=== PATIENT | female | born 1945 | race Caucasian/White ===

== ENCOUNTER 2020-06-10 08:52 | Outpatient (CLI) | payer MEDICARE, OTHER, SELFPAY ==
--- NOTE | 2020-06-10 09:10 | CT_ITS ---
WS: [id number] CT CHEST, ABDOMEN, AND PELVIS TECHNIQUE: Contrast-enhanced CT of the chest, abdomen, and pelvis with coronal and sagittal reformatt ed images. CLINICAL INFORMATION: ADENOCARCINOMA RIGHT LUNG COMPARISON: None. DLP: 2298.[address] scans at [facility] use at least one of these dose optimization techniques: automat ed exposure control; mA and/or kV adjustment per patient size (includes targeted exams where dose is matched to clinical indication); or iterative reconstruction. CT CHEST: Subsegmental atelectasis in the right middle lobe and right lower lobe with a few hazy opacities in t he right lower lobe. Small right pleural effusion with mild pleural thickening. No evidence of residu al or recurrent intraparenchymal mass. Left lung is well aerated. No focal consolidation. No focal pn eumonia. No mediastinal or hilar lymphadenopathy. Calcified peribronchial and left hilar lymph nodes. No axill catalina lymphadenopathy. Normal caliber thoracic aorta. Proximal main pulmonary arteries are normal. Righ t thyroid nodule measuring 9 mm. Small esophageal hiatal hernia. Prominent periesophageal lymph node measuring 7.[address] ABDOMEN AND PELVIS: Diffuse fatty infiltration of the liver. Portal vein and splenic vein are normal. Normal gallbladder. Splenic granulomas. Small esophageal hiatal hernia. Fatty atrophy of the pancreas. Adrenal glands ar e normal. Normal renal parenchymal enhancement. Right renal cyst measuring 8 mm. No periaortic or upp er abdominal lymphadenopathy. No pelvic or inguinal lymphadenopathy. Prominent left inguinal lymph no de with preserved fatty hilum measuring 8 mm. No evidence of small or large bowel obstruction. No amaya dence of metastatic disease in the abdomen or pelvis. No free fluid in the abdomen or pelvis. Chronic compression of the T12 vertebral body with loss of ap proximately 60% vertebral body height. Mild retropulsion posterior superior cortex with mild central canal stenosis. CT/CT chest abd pel w con* IMPRESSION: 1. Subsegmental atelectasis in the right middle lobe and right lower lobe with a few patchy opacities in right lung base likely inflammatory. Small right ple ural effusion with pleural thickening. 2. No evidence of recurrent or residual intraparenchymal mass in the right leonidas g. Left lung is well aerated. 3. No mediastinal or hilar lymphadenopathy. 4. Prominent periesophageal lymph node at the GE junction measuring 7.6 mm is indeterminate. Metastatic disease not entirely excluded. Recommend 3 month inte rval follow-up. 5. Small esophageal hiatal hernia. 6. Mild diffuse fatty infiltration of the liver. 7. No adenopathy or evidence of metastatic disease in the abdomen or pelvis. 8. Chronic compression of the T12 vertebral body described above.
[2020-06-10] MEDS: iohexol 300 mg/mL 50 mL Btl PO (09:21)
[2020-06-10 10:34] LABS: Blood Urea Nitrogen 16 mg/dL (8-23)
[2020-06-10] MEDS: iohexol 300 mg/mL 100 mL Btl IV (10:49)
== END 2020-06-10 08:53 | disposition home or self-care (01) ==
PROVIDERS: PCP Student in an Organized Health Care Education/Training Program; Visit Provider Internal Medicine Hematology & Oncology
DX: C34.91 Malignant neoplasm of unspecified part of right bronchus or lung (principal); J98.11 Atelectasis; K44.9 Diaphragmatic hernia without obstruction or gangrene; K76.0 Fatty (change of) liver, not elsewhere classified; S22.080A Wedge compression fracture of T11-T12 vertebra, initial encounter for closed fracture; X58.XXXA Exposure to other specified factors, initial encounter
CPT/HCPCS: 71260; 74177; 82565; 84520; Q9967

== ENCOUNTER 2020-08-23 09:11 | Outpatient (CLI) | payer MEDICARE, OTHER, SELFPAY ==
--- NOTE | 2020-08-23 09:30 | CT_ITS ---
WS: [id number] CT CHEST, ABDOMEN, AND PELVIS TECHNIQUE: Contrast-enhanced CT of the chest, abdomen, and pelvis with coronal and sagittal reformatt ed images. CLINICAL INFORMATION: ADENOCARCINOMA OF RT LUNG COMPARISON: CT June 10, 2020, 02/09/2020 and 11/10/2019 DLP: 2357.[address] scans at [facility] use at least one of these dose optimization techniques: automat ed exposure control; mA and/or kV adjustment per patient size (includes targeted exams where dose is matched to clinical indication); or iterative reconstruction. CT CHEST: Subsegmental atelectasis in the right middle lobe and right lower lobe with a few hazy opacities unch anged from previous. Small right pleural effusion with mild pleural thickening. No evidence of residu al or recurrent intraparenchymal mass. Left lung is well aerated. No mediastinal or hilar lymphadenopathy. Calcified peribronchial and left hilar lymph nodes. Prominent left axillary lymph nodes slightly progressed compared to previous, larg est measuring 7-8 mm not pathologically enlarged. Normal caliber thoracic aorta. Proximal main pulmon catalina arteries are normal. Right thyroid nodule measuring 9 mm. Unchanged Small esophageal hiatal herni a. Prominent periesophageal lymph node measuring [address] ABDOMEN AND PELVIS: Diffuse fatty infiltration of the liver. Portal vein and splenic vein are normal. Normal gallbladder. Splenic granulomas. Small esophageal hiatal hernia. Fatty atrophy of the pancreas. Adrenal glands ar e normal. Normal renal parenchymal enhancement. Right renal cyst measuring 8 mm. No periaortic or upp er abdominal lymphadenopathy. No pelvic or inguinal lymphadenopathy. No evidence of small or large bowel obstruction. No evidence of metastatic disease in the abdomen or pelvis. No free fluid in the abdomen or pelvis. Chronic compression of the T12 vertebral body with lo ss of approximately 60% vertebral body height. Mild retropulsion posterior superior cortex with mild central canal stenosis. CT/CT chest abd pel w con* IMPRESSION: 1. Stable small right pleural effusion with pleural thickening. 2. No evidence of recurrent or residual intraparenchymal mass in the right leonidas g. 3. No mediastinal or hilar lymphadenopathy. 4. Prominent periesophageal lymph node at the GE junction measuring 7.0 mm is unchanged 5. Small esophageal hiatal hernia. 6. Mild diffuse fatty infiltration of the liver. 7. No adenopathy or evidence of metastatic disease in the abdomen or pelvis. 8. Chronic compression of the T12 vertebral body unchanged
[2020-08-23] MEDS: iohexol 300 mg/mL 50 mL Btl PO (11:15)
[2020-08-23 11:27] LABS: Blood Urea Nitrogen 15 mg/dL (8-23)
[2020-08-23] MEDS: iohexol 300 mg/mL 100 mL Btl IV (11:34)
== END 2020-08-23 09:12 | disposition home or self-care (01) ==
LOC: RADWPI 09:14
PROVIDERS: PCP Student in an Organized Health Care Education/Training Program; Visit Provider Internal Medicine Hematology & Oncology
DX: C34.91 Malignant neoplasm of unspecified part of right bronchus or lung (principal); S22.089A Unspecified fracture of T11-T12 vertebra, initial encounter for closed fracture; X58.XXXA Exposure to other specified factors, initial encounter; K76.0 Fatty (change of) liver, not elsewhere classified; K44.9 Diaphragmatic hernia without obstruction or gangrene; J90 Pleural effusion, not elsewhere classified
CPT/HCPCS: 71260; 74177; 82565; 84520; Q9967

== ENCOUNTER 2020-11-11 08:23 | Outpatient (CLI) | payer MEDICARE, OTHER, SELFPAY ==
[2020-11-11 08:56] LABS: Basophils % 0.6 %; Eosinophils # 0.2 10^3/uL (0.0-0.8); Eosinophils % 4.8 %; Hemoglobin 12.2 g/dL (11.5-15.3); Lymphocytes # 0.9 10^3/uL (0.8-4.8); Lymphocytes % 23.8 %; Mean Corpuscular HGB Conc 31.3 g/dL (30.0-36.0); Mean Corpuscular Hemoglobin 30.3 pg (28.0-34.0); Mean Corpuscular Volume 96.8 fL (81-99); Monocytes # 0.6 10^3/uL (0.2-0.9); Monocytes % 15.4 %; Neutrophils # 1.98 10^3/uL (1.8-7.7); Neutrophils % 55.4 %; Nucleated Red Blood Cells % 0 %; Platelet Count 156 10^3/cmm (130-400); Red Blood Count 4.03 10^6/uL (4.1-5.3); Red Cell Distribution Width 13.6 % (12.1-15.1); White Blood Count 3.6 10^3/uL (4.0-10.0)
[2020-11-11 09:03] LABS: Alanine Aminotransferase 25 U/L (0-33); Albumin Level 3.2 g/dL (3.5-5.2); Alkaline Phosphatase 69 IU/L (35-105); Anion Gap 8.5 (5-19); Aspartate Amino Transferase 22 U/L (0-32); Blood Urea Nitrogen 22 mg/dL (8-23); Calcium 8.4 mg/dL (8.5-10.5); Carbon Dioxide 29 mmol/L (22-29); Chloride 109 mmol/L (98-107); Globulin 1.7 g/dL (1.3-4.6); Glucose 84 mg/dL (65-115); Osmolality Calculated 297 mOsm/kg (285-295); Potassium 4.5 mmol/L (3.5-5.1); Sodium 142 mmol/L (136-145); Total Bilirubin 0.2 mg/dL (0.15-1.2); Total Protein 4.9 g/dL (6.6-8.7)
== END 2020-11-11 08:24 | disposition home or self-care (01) ==
LOC: LAB 08:26
PROVIDERS: PCP Student in an Organized Health Care Education/Training Program; Visit Provider Internal Medicine Hematology & Oncology
DX: C34.91 Malignant neoplasm of unspecified part of right bronchus or lung (principal)
CPT/HCPCS: 36415; 80053; 85025

== ENCOUNTER 2020-12-08 07:58 | Outpatient (CLI) | payer MEDICARE, OTHER, SELFPAY ==
--- NOTE | 2020-12-08 08:12 | NM_ITS ---
WS: [id number] NUCLEAR MEDICINE BONE SCAN Radiopharmaceutical: 26.5 Tc-99m MDP mCi IV Injection site: Right antecubital Postinjection imaging delay: 1 hr CLINICAL INFORMATION: ADENOCARCINOMA R LUNG COMPARISON: CT chest abdomen pelvis December 08, 2020 FINDINGS: Bone lesions: There are no osseous lesions suspicious for metastatic disease. Soft tissue contours: Normal. Kidneys: Normal. Other findings: Low-grade uptake in the T12 vertebral body consistent with previously described compr ession fracture. Compression fracture unchanged since October 2019 NM/NM bone scan whole body* [id number] IMPRESSION: 1. No evidence of osseous metastatic disease. 2. Low-grade uptake chronic compression fracture T12 vertebral body. Compressi on fracture unchanged since October 2019
--- NOTE | 2020-12-08 08:12 | CT_ITS ---
WS: [id number] CT CHEST, ABDOMEN, AND PELVIS TECHNIQUE: Contrast-enhanced CT of the chest, abdomen, and pelvis with coronal and sagittal reformatt ed images. CLINICAL INFORMATION: ADENOCARCINOMA R LUNG COMPARISON: Multiple prior CTs August 2020, May 2020, January 2020, October 2019. DLP: 1209.[address] scans at [facility] use at least one of these dose optimization techniques: automat ed exposure control; mA and/or kV adjustment per patient size (includes targeted exams where dose is matched to clinical indication); or iterative reconstruction. CT CHEST: Both lungs are well aerated. No acute pulmonary infiltrates. Hazy atelectasis in right middle lobe an d right lower lobe. Tiny right pleural effusion pleural thickening unchanged from previous. Left lung is well aerated. Small bilateral thyroid nodules. Normal caliber thoracic aorta. No mediastinal or h ilar lymphadenopathy. Calcified hilar lymph nodes. No axillary lymphadenopathy. Previously described paraesophageal lymph node measuring [address] ABDOMEN AND PELVIS: Diffuse fatty infiltration of the liver. Portal vein and splenic vein are normal. Normal gallbladder . Splenic granulomas. Small esophageal hiatal hernia. Fatty atrophy of the pancreas. Adrenal glands are normal. Normal renal parenchymal enhancement. Right renal cyst measuring 8 mm. No periaortic or upper abdominal lymphadenopathy. No pelvic or inguinal lymphadenopathy. No evidence of small or large bowel obstruction. No evidence of metastatic disease in the abdomen or pelvis. No free fluid in the abdomen or pelvis. Chronic compression of the T12 vertebral body with loss of approximately 60% vertebral body height is unchanged. Mild retropulsion posterior superi or cortex with mild central canal stenosis. CT/CT chest abd pel w con* IMPRESSION: 1. No evidence of metastatic disease in the chest abdomen or pelvis. 2. No adenopathy in the chest abdomen or pelvis. 3. Stable compression fracture T12 vertebral body with loss of approximately 6 0% vertebral body height is unchanged.
[2020-12-08] MEDS: iohexol 300 mg/mL 50 mL Btl PO (09:37)
[2020-12-08] MEDS: iohexol 300 mg/mL 100 mL Btl IV (09:38)
== END 2020-12-08 07:59 | disposition home or self-care (01) ==
LOC: CT 08:01
PROVIDERS: PCP Student in an Organized Health Care Education/Training Program; Visit Provider Internal Medicine Hematology & Oncology
DX: C34.91 Malignant neoplasm of unspecified part of right bronchus or lung (principal); S22.088A Other fracture of T11-T12 vertebra, initial encounter for closed fracture; X58.XXXA Exposure to other specified factors, initial encounter
CPT/HCPCS: 71260; 74177; 78306; A9561

== ENCOUNTER 2021-04-11 07:13 | Outpatient (CLI) | payer MEDICARE, OTHER, SELFPAY ==
--- NOTE | 2021-04-11 07:17 | CT_ITS ---
WS: [id number] CT CHEST, ABDOMEN, AND PELVIS TECHNIQUE: Contrast-enhanced CT of the chest, abdomen, and pelvis with coronal and sagittal reformatt ed images. CLINICAL INFORMATION: ADENOCARCINAOMA RT LUNG COMPARISON: CT December 08, 2020 August 23, 2020 DLP: 1108.[address] scans at [facility] use at least one of these dose optimization techniques: automated e xposure control; mA and/or kV adjustment per patient size (includes targeted exams where dose is matc hed to clinical indication); or iterative reconstruction. CT CHEST: Lungs are well aerated. Hazy atelectasis in right middle lobe and right lower lobe. Tiny right pleur al effusion pleural thickening unchanged from previous. Left lung is well aerated. Small bilateral thyroid nodules. Normal caliber thoracic aorta. No mediastinal or hilar lymphadenopat hy. Calcified hilar lymph nodes. No axillary lymphadenopathy. Previously described paraesophageal lym ph node measuring [address] ABDOMEN AND PELVIS: Diffuse fatty infiltration the liver. Normal portal vein and splenic vein. Splenic granulomas. Small esophageal hiatal hernia. Fatty atrophy of the pancreas. Adrenal glands are normal. Stable right mary l cyst. Normal renal parenchymal enhancement. No hydronephrosis. Normal caliber abdominal aorta. Normal sigmoid colon. No evidence of high-grade small or large bowel obstruction. No periaortic retro peritoneal lymphadenopathy. No pelvic lymphadenopathy. No inguinal lymphadenopathy. CT/CT chest abd pel w con* IMPRESSION: 1. No evidence of metastatic disease in the chest abdomen or pelvis. 2. No adenopathy in the chest abdomen or pelvis. 3. Stable compression fracture T12 vertebral body with loss of approximately 60 % vertebral body height is unchanged. 4. Tiny right pleural effusion pleural thickening unchanged from previous.
--- NOTE | 2021-04-11 07:18 | NM_ITS ---
WS: [id number] NUCLEAR MEDICINE BONE SCAN Radiopharmaceutical: 27.4 Tc-99m MDP mCi IV Injection site: antecubital Postinjection imaging delay: 1 hr CLINICAL INFORMATION: ADENOCARCINOAMS RT LUNG COMPARISON: December 08, 2020 FINDINGS: Bone lesions: There are no osseous lesions suspicious for metastatic disease. Soft tissue contours: Normal. Kidneys: Normal. Other findings: Low-grade uptake in the T12 vertebral body consistent with previously described compr ession fracture is similar in appearance to previous. Compression fracture unchanged since December 08 21 NM/NM bone scan whole body* [id number] IMPRESSION: 1. No evidence of osseous metastatic disease. 2. Residual low-grade uptake chronic compression fracture T12 vertebral body si milar to the prior study. Compression fracture appears unchanged compared to Ma 2020
[2021-04-11 08:14] LABS: Blood Urea Nitrogen 14 mg/dL (8-23)
[2021-04-11] MEDS: iohexol 300 mg/mL 100 mL Btl IV (10:01)
[2021-04-11] MEDS: iohexol 300 mg/mL 50 mL Btl PO (10:02)
== END 2021-04-11 07:14 | disposition home or self-care (01) ==
LOC: NM 07:15
PROVIDERS: PCP Student in an Organized Health Care Education/Training Program; Visit Provider Internal Medicine Hematology & Oncology
DX: C34.91 Malignant neoplasm of unspecified part of right bronchus or lung (principal); S22.089A Unspecified fracture of T11-T12 vertebra, initial encounter for closed fracture; X58.XXXA Exposure to other specified factors, initial encounter; J90 Pleural effusion, not elsewhere classified
CPT/HCPCS: 36415; 71260; 74177; 78306; 82565; 84520; A9561

== ENCOUNTER → 2021-09-09 08:51 | Outpatient (BNVA) | payer MEDICARE, OTHER, SELFPAY | PROVIDERS: PCP Student in an Organized Health Care Education/Training Program; Visit Provider Obstetrics & Gynecology | DX: Z20.822 Contact with and (suspected) exposure to COVID-19 (principal) | CPT/HCPCS: 87635 ==

== ENCOUNTER 2021-09-13 10:41 | Observation (INO) | payer MEDICARE, OTHER, SELFPAY ==
[2021-09-12 13:58] VITALS: BMI 26.9
[2021-09-13] VITALS (23 sets, daily range): BP systolic 90–143; BP diastolic 48–78; PULSE 60–96; RESP 12–18; TEMP 36–36.5; O2SAT 92–100
[2021-09-13] MEDS: sodium chloride 0.9% 1,000 ML 30 ML IV (06:40)
[2021-09-13] MEDS: acetaminophen 1,000 MG/100 ML PIGGYBACK 400 MG IV (06:41)
[2021-09-13] MEDS: CELEcoxib 200 mg Capsule 400 MG PO (06:42)
[2021-09-13] MEDS: gabapentin 300 mg Capsule PO (06:42)
[2021-09-13] MEDS: phenazopyridine 100 mg Tablet 200 MG PO (06:43)
[2021-09-13] MEDS: ketorolac 30 mg/mL INJ IVP ×3 (06:43→19:49)
[2021-09-13 06:44] LABS: Basophils % 0.6 %; Eosinophils # 0.2 10^3/uL (0.0-0.8); Eosinophils % 4.8 %; Hematocrit 36.3 % (37.0-47.0); Hemoglobin 11.9 g/dL (11.5-15.3); Lymphocytes # 0.9 10^3/uL (0.8-4.8); Lymphocytes % 25.8 %; Mean Corpuscular HGB Conc 32.8 g/dL (30.0-36.0); Mean Corpuscular Hemoglobin 30.4 pg (28.0-34.0); Mean Corpuscular Volume 92.8 fl (81-99); Mean Platelet Volume 11.1 fL (7.4-10.4); Monocytes # 0.5 10^3/uL (0.2-0.9); Monocytes % 15.1 %; Neutrophils # 1.91 10^3/uL (1.8-7.7); Neutrophils % 53.4 %; Nucleated Red Blood Cells % 0 %; Platelet Count 146 10^3/cmm (130-400); Red Blood Count 3.91 10^6/uL (4.1-5.3); Red Cell Distribution Width 13.4 % (12.1-15.1); White Blood Count 3.6 10^3/uL (4.0-10.0)
[2021-09-13] MEDS: scopolamine 1.5 Patch 1 PATCH TRANSDERMA (06:45)
--- NOTE | 2021-09-13 06:55 | ANES.PREANE2 ---
Pre-Anesthetic Assessment Height/Weight: Height 1.57 m Weight 66.678 kg Temp Pulse Resp BP Pulse Ox 97.3 F L 93 17 139/78 94 09/13/21 05:55 09/13/21 05:55 09/13/21 05:55 09/13/21 05:55 09/13/21 05:55 Preop Diagnosis: uterine prolapse, cystocele, rectocele, mixed urinary incontinence Operation Date: 09/13/21 07:00 Proposed Procedures p Total Vaginal Hysterectomy 80871/n81.4/11792/n81.0/n81.6/n39.46(Not Applicable) - Shelly Curran MD s Salpingo-Oophorectomy (Vaginal)(Bilateral) - Shelly Curran MD s Anterior Repair(Not Applicable) - Shelly Curran MD s Posterior Repair(Not Applicable) - Shelly Curran MD s Sling(Not Applicable) - Shelly Curran MD Familial anesthetic complications: None Was Beta Barrett taken within 24 hours: N/A Was Clonidine taken within 24 hours: N/A Last intake: Intake Last Liquid Date 09/12/21 Last Liquid Time 22:00 Last Solid Date 09/12/21 Last Solid Time 19:00 Social No alcohol and No tobacco Exam alert, oriented x 3, clear to auscultation bilaterally and regular rate & rhythm Airway Submandibular: within normal limits Cervical ROM: within normal limits Mallampati: Class II Dentition: full Pulmonary 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 w/o CAMPOS CV/HEM None reported None reported Hepatic None reported GI None reported Metabolic Thyroid Disease [facility] None reported Neuropsych Insomnia Anesthetic Plan ASA status: 3 (75 year old with hx of hypothyroidism and 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 Patient consents to proceed with general anesthesia. Risk of > 500 ml blood loss (7ml/kg in children): No Medications/Allergies Home Medications Medication Instructions Recorded Confirmed Last Taken Type alendronate 70 mg tablet 70 mg PO Q7D tab 05/16/21 09/13/21 09/12/21 History alprazolam 0.25 mg tablet 0.25 mg PO BID PRN tab 05/16/21 09/13/21 09/12/21 22:00 History amitriptyline 50 mg tablet 50 mg PO DAILY 05/16/21 09/13/21 09/12/21 21:00 History fluticasone propionate 50 1 spray INTRANASAL DAILY 05/16/21 09/13/21 09/12/21 History mcg/actuation nasal spray,suspension levothyroxine 75 mcg tablet 75 mcg PO DAILY 05/16/21 09/13/21 09/12/21 06:00 History (Euthyrox) osimertinib 80 mg tablet (Tagrisso) 80 mg PO DAILY 05/16/21 09/13/21 09/10/21 History potassium chloride 20 mEq 20 meq PO BID 05/16/21 09/13/21 09/12/21 10:00 History tablet,extended release(part/cryst) (Klor-Con M) trospium 20 mg tablet 20 mg PO BID 05/16/21 09/13/21 09/12/21 08:00 History multivitamin 1 tab PO DAILY 09/09/21 09/13/21 09/12/21 15:30 History ascorbic acid (vitamin C) 1,000 mg 500 mg PO DAILY 09/12/21 09/13/21 09/12/21 13:30 History tablet (Vitamin C) biotin 10,000 mcg capsule 10,000 mcg PO DAILY 09/12/21 09/13/21 09/12/21 15:30 History calcium carbonate 200 mg calcium 600 tab PO DAILY 09/12/21 09/13/21 09/12/21 13:30 History (500 mg)-vitamin D3 400 unit tablet cetirizine 5 mg tablet 5 mg PO DAILY 09/12/21 09/13/21 09/11/21 History famotidine 20 mg tablet 20 mg PO BID 09/12/21 09/13/21 09/12/21 06:00 History iron 18 mg tablet 18 mg PO DAILY 09/12/21 09/13/21 09/12/21 15:30 History naproxen sodium 220 mg tablet 220 mg PO BID 09/12/21 09/13/21 09/12/21 08:00 History (Aleve) polyethylene glycol 3350 17 17 g PO DAILY 09/12/21 09/13/21 09/12/21 10:00 History gram/dose oral powder (ClearLax) Allergies Allergy/AdvReac Type Severity Reaction Status Date / Time Sulfa (Sulfonamide Allergy Severe hallucinati Verified 09/13/21 06:01 Antibiotics) ons Penicillins Allergy Mild rash Verified 09/13/21 06:01 Current Medications Generic Name Dose Route Start Last Admin Trade Name Leann PRN Reason Stop Dose Admin Sodium Chloride 1,000 mls @ 30 mls/hr 09/13/21 06:00 09/13/21 06:40 Sodium Chloride 0.9% IV 09/14/21 05:59 30 mls/hr .Q24H MARTINE Administration PFSH Anesthesia Medical History Hypothyroidism Insomnia Osteoporosis Pleural mesothelioma takes chemo that keeps the fluid down-2017 Seasonal allergies Surgical History H/O arthroscopic knee surgery History of lumpectomy of both breasts Family History Grandfather Bleeding disorder paternal Father CAD (coronary artery disease) Mother Cancer colon cancer Hypertension Stroke Denies family history of Diabetes Clotting disorder Hyperlipidemia Chronic kidney disease (CKD) Thyroid disease Data Anesthesia : 09/13/21 06:05 09/13/21 06:05 Short CBC 09/13/21 Range/Units 06:05 WBC 3.6 L (4.0-10.0) 10^3/uL Hgb 11.9 (11.5-15.3) g/dL Hct 36.3 L (37.0-47.0) % MCV 92.8 (81-99) fl Plt Count 146 (130-400) 10^3/cmm Neut % (Auto) 53.4 % Neut # (Auto) 1.91 (1.8-7.7) 10^3/uL Cardiac Studies: No Data to Display
[2021-09-13 07:04] LABS: Alanine Aminotransferase 30 U/L (0-33); Albumin Level 3.3 g/dL (3.5-5.2); Alkaline Phosphatase 66 IU/L (35-105); Blood Urea Nitrogen 18 mg/dL (8-23); Calcium 8.8 mg/dL (8.5-10.5); Carbon Dioxide 23 mmol/L (22-29); Chloride 111 mmol/L (98-107); Globulin 2.1 g/dL (1.3-4.6); Glucose 104 mg/dL (65-115); Osmolality Calculated 298 mOsm/kg (285-295); Sodium 143 mmol/L (136-145); Total Bilirubin 0.2 mg/dL (0.15-1.2); Total Protein 5.4 g/dL (6.6-8.7)
[2021-09-13 07:07] LABS: Anion Gap 13.2 (5-19); Aspartate Amino Transferase 32 U/L (0-32); Potassium 4.2 mmol/L (3.5-5.1)
--- NOTE | 2021-09-13 07:08 | W.PM.OPSUD ---
Surgery/Procedure H&P Update DATE OF PROCEDURE: September 13, 2021 DATE H&P PERFORMED: 09/09/21 H&P UPDATE INFORMATION: I have reviewed H&P completed within last 30 days, I have examined patient prior to procedure and No changes to prior documentation PREOP DIAGNOSIS: uterine prolapse, cystocele, rectocele, mixed urinary incontinence PLANNED PROCEDURE: Operation Date: 09/13/21 07:00 Proposed Procedures p Total Vaginal Hysterectomy 22065/n81.4/34346/n81.0/n81.6/n39.46(Not Applicable) - Shelly Curran MD s Salpingo-Oophorectomy (Vaginal)(Bilateral) - Shelly Curran MD s Anterior Repair(Not Applicable) - Shelly Curran MD s Posterior Repair(Not Applicable) - Shelly Curran MD s Sling(Not Applicable) - Shelly Curran MD Related Problem List Diagnoses (1) 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
[2021-09-13] MEDS: vasopressin 20 unit/mL INJ INJECTION (08:00)
--- NOTE | 2021-09-13 08:56 | SUR.OPER ---
0844 family updated of surgical status
--- NOTE | 2021-09-13 09:55 | P.OP_ITS ---
Operative Report Date of procedure: September 13, 2021 Pre-op diagnosis: Preop Diagnosis uterine prolapse, cystocele, rectocele, mixed urinary incontinence Post-op diagnosis: same Post-op findings: Small uterus, fallopian tubes and ovaries. Large rectocele and laxity of the posterior fourchette. No incontinence post surgery. Procedure done: total vaginal hysterectomy with bilateral salpingectomy and right oophorectomy. Left overy could not be visualized. Specimens removed/disposition: uterus, bilateral fallopian tubes and right ovary to pathology Surgeon: Shelly Curran Anesthesia: General Estimated blood loss (mL): 20 IV fluids (mL): 1,000 Urine output (mL): 200 Complications: none Condition: stable Procedure: The patient was taken to the operating room where general anesthesia was administered and found to be adequate. She was prepped and draped in the normal sterile fashion in the dorsal lithotomy position in [facility]. A López catheter was placed. A weighted speculum was placed into the vagina and the anterior and posterior lip of the cervix was grasped with a Jones tenaculum. 10 mL of dilute Pitressin was injected at the vesicovaginal junction. A circumferential incision was made at the vesicovaginal junction and the vaginal mucosa reflected cephalad. The posterior peritoneum was entered sharply with the Metzenbaum scissors and the long weighted speculum replaced. Using the Vincenzo clamps the uterosacral ligaments were clamped cut and suture-ligated. Then sequentially the uterine arteries and cardinal ligaments were clamped cut and suture-ligated. A single-tooth tenaculum was used to deliver the uterus. The utero-ovarian ligaments were clamped cut and suture-ligated bilaterally and the specimen was removed. The right infundibulopelvic ligament was clamped superior to the tube and ovary. It was cut and suture ligated. The left infundibulopelvic ligament was also grasped, but no ovary was visualized. It was cut and suture ligated as well. There was excellent hemostasis. The peritoneum was closed with a pursestring using 3-0 Monocryl. The vaginal cuff was closed with 0 Vicryl in a running locked pattern incorporating the uterosacral ligaments into the lateral aspects of the vaginal cuff. The López catheter was removed and the cystoscope advanced into the bladder. The patient was given pyridium prior to surgery and bilateral spill was noted. There were no injuries or deficits noted in the bladder. The cystoscope was removed and the López was replaced. Attention was then turned to the posterior repair. The vaginal cuff was identified and an allis clamp was placed in the midline of the vaginal mucosa, approximately 2 cm proximal to the cuff. A second allis clamp was placed in the midline of the vaginal mucosa, approximately 3 cm from the introitus. An incision was made in the midline from clamp to clamp. The vaginal mucosa was clamped laterally and the rectocele dissected off of the rectovaginal fascia. The rectocele was packed away and the rectovaginal fascia brought together in the midline with figure of 8 interrupted sutures of O-Vicryl. The packing was removed and the excess vaginal tissue trimmed. The incision was repaired with 0-Vicryl in a running fashion. Attention was then turned to the perineorrhphy. Allis clamps were placed on the posterior fourchette. A 3 cm wedge of the fourchette was removed. This was repaired in the usual fashion with O-vicryl. Attention was then turned to the sling portion of the procedure. The bladder was filled with approximately 300 ml of sterile fluid from the cystoscope. Pressure was placed onto the bladder and no spill noted. The bladder was then overfilled and again crudee was performed. There was a tiny trickle of fluid. The decision was made not to place the sling. Vaginal packing was placed. The patient tolerated the procedure well. Sponge, lap and needle count were correct times three and she was taken to the recovery room in stable condition.
[2021-09-13] MEDS: fentaNYL 50 mcg/mL INJ 2mL IVP (10:49)
--- NOTE | 2021-09-13 15:11 | ANE.PACU2 ---
Inpatient post-anesthesia follow up: Airway intact: Yes Vital signs: Temperature 97.7 F Pulse Rate 83 Respiratory Rate 16 Blood Pressure 131/74 Pulse Oximetry 92 Oxygen Delivery Me thod Room Air Oxygen Flow Rate 3 Fraction of Inspir ed Oxygen Hydration adequate: Yes Nausea and vomiting: No Pain level: 4 Mental status: Baseline
[2021-09-13] MEDS: HYDROcodone-acetaminophen 5-325 mg Tablet PO (15:53)
[2021-09-13] MEDS: docusate sodium 100 mg Capsule PO (19:29)
[2021-09-13] MEDS: famotidine 20 mg Tablet PO (19:30)
[2021-09-13] MEDS: lactated ringers 1,000 ML 125 ML IV (20:12)
[2021-09-13] MEDS: potassium chloride ER 20 mEq Tablet PO (20:14)
[2021-09-13] MEDS: ALPRAZolam 0.5 mg Tablet 0.25 MG PO (21:32)
[2021-09-13] MEDS: amitriptyline 25 mg Tablet 50 MG PO (21:32)
[2021-09-14] MEDS: sodium chloride 0.9% 500 ML IV (02:19)
[2021-09-14 02:24] VITALS: BP 98/58; PULSE 86; RESP 12; O2SAT 92
[2021-09-14 04:37] VITALS: BP 91/54; PULSE 82; RESP 16; TEMP 36.5; O2SAT 93
[2021-09-14 05:41] LABS: Hematocrit 32.7 % (37.0-47.0); Hemoglobin 10.6 g/dL (11.5-15.3); Mean Corpuscular HGB Conc 32.4 g/dL (30.0-36.0); Mean Corpuscular Volume 95.6 fl (81-99); Mean Platelet Volume 11.5 fL (7.4-10.4); Platelet Count 142 10^3/cmm (130-400); Red Blood Count 3.42 10^6/uL (4.1-5.3); Red Cell Distribution Width 13.8 % (12.1-15.1); White Blood Count 7.8 10^3/uL (4.0-10.0)
[2021-09-14] MEDS: lactated ringers 1,000 ML 125 ML IV (05:43)
--- NOTE | 2021-09-14 06:25 | PC.NURSE ---
Pt's vaginal packing was removed at 0520 on 09/14/2021. Telephone order was received by this RN from MD Bina prior to removing vaginal packing and hadley catheter.
[2021-09-14] MEDS: famotidine 20 mg Tablet PO (09:38)
[2021-09-14] MEDS: ibuprofen 800 mg tablet PO (09:38)
[2021-09-14] MEDS: levothyroxine 75 mcg Tablet PO (09:38)
[2021-09-14] MEDS: docusate sodium 100 mg Capsule PO (09:38)
[2021-09-14] MEDS: potassium chloride ER 20 mEq Tablet PO (09:39)
--- NOTE | 2021-09-14 10:15 | PM.DCS ---
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 She did well postoperatively and was ready for discharge on POD#! Physical Exam Narrative: Doing well this morning. hadley catheter and packing has been removed. able to void without problems. Const: COMMON NORMALS: no acute distress, average body habitus, patient oriented x3, no limitations, healthy appearing, alert and well nourished GENERAL APPEARANCE: cooperative, comfortable, well kempt and well developed ORIENTATION/CONSCIOUSNESS: Yes awake, Yes oriented to person, Yes oriented to place and Yes oriented to time Resp: COMMON NORMALS: normal respiratory effort EFFORT & INSPECTION: Yes able to speak in complete sentences GI: COMMON NORMALS: Soft to palpation and non-tender PALPATION: Yes Soft to palpation Extremity: COMMON NORMALS: no calf tenderness Neuro: COMMON NORMALS: patient oriented x3 SENSORIUM/ORIENTATION: Yes alert, Yes oriented to person, Yes oriented to place and Yes oriented to time Psych: APPEARANCE: Yes well kempt Urinary Catheter Management: Hadley Latex: Cath Placed During This Visit: yes, but has since been removed by the nurse Reason for Continuing Indwelling Catheter: Decision to DC Catheter Urinary Catheter Date of Insertion: 09/13/21 Urinary Catheter Time of Insertion: 07:50 Date Urinary Catheter Removed: 09/14/21 Time Urinary Catheter Discontinued: 05:44 Discharge Data Studies Completed and Pending Pending at discharge Category Date Time Status Urine Culture Routine Lab 09/13/21 07:52 Results Pathology: Surgical [PTH] Routine Pth 09/13/21 09:42 Received Laboratory Results WBC 7.8 10^3/uL (4.0-10.0) 09/14/21 05:18 RBC 3.42 10^6/uL (4.1-5.3) L 09/14/21 05:18 Hgb 10.6 g/dL (11.5-15.3) L 09/14/21 05:18 Hct 32.7 % (37.0-47.0) L 09/14/21 05:18 MCV 95.6 fl (81-99) 09/14/21 05:18 MCH 31.0 pg (28.0-34.0) 09/14/21 05:18 MCHC 32.4 g/dL (30.0-36.0) 09/14/21 05:18 RDW 13.8 % (12.1-15.1) 09/14/21 05:18 Plt Count 142 10^3/cmm (130-400) 09/14/21 05:18 MPV 11.5 fL (7.4-10.4) H 09/14/21 05:18 Neut % (Auto) 53.4 % 09/13/21 06:05 Lymph % (Auto) 25.8 % 09/13/21 06:05 [place] % (Auto) 15.1 % 09/13/21 06:05 Eos % (Auto) 4.8 % 09/13/21 06:05 Baso % (Auto) 0.6 % 09/13/21 06:05 Neut # (Auto) 1.91 10^3/uL (1.8-7.7) 09/13/21 06:05 Lymph # (Auto) 0.9 10^3/uL (0.8-4.8) 09/13/21 06:05 [place] # (Auto) 0.5 10^3/uL (0.2-0.9) 09/13/21 06:05 Eos # (Auto) 0.2 10^3/uL (0.0-0.8) 09/13/21 06:05 Baso # (Auto) 0.0 10^3/uL (0.0-0.1) 09/13/21 06:05 Nucleated RBC % (auto) 0 % 09/13/21 06:05 Nucleated RBCs # 0.0 /100WBC 09/13/21 06:05 Sodium 143 mmol/L (136-145) 09/13/21 06:05 Potassium 4.2 mmol/L (3.5-5.1) 09/13/21 06:05 Chloride 111 mmol/L (98-107) H 09/13/21 06:05 Carbon Dioxide 23 mmol/L (22-29) 09/13/21 06:05 Anion Gap 13.2 (5-19) 09/13/21 06:05 BUN 18 mg/dL (8-23) 09/13/21 06:05 Creatinine 0.6 mg/dL (0.5-0.9) 09/13/21 06:05 GFR Calculation Not Reportable 09/13/21 06:05 Glucose 104 mg/dL (65-115) 09/13/21 06:05 Calculated Osmolality 298 mOsm/kg (285-295) H 09/13/21 06:05 Calcium 8.8 mg/dL (8.5-10.5) 09/13/21 06:05 Total Bilirubin 0.2 mg/dL (0.15-1.2) 09/13/21 06:05 AST 32 U/L (0-32) 09/13/21 06:05 ALT 30 U/L (0-33) 09/13/21 06:05 Alkaline Phosphatase 66 IU/L (35-105) 09/13/21 06:05 Total Protein 5.4 g/dL (6.6-8.7) L 09/13/21 06:05 Albumin 3.3 g/dL (3.5-5.2) L 09/13/21 06:05 Globulin 2.1 g/dL (1.3-4.6) 09/13/21 06:05 Blood Type B Positive 09/13/21 07:03 Rho(D) Type Positive 09/13/21 07:03 Antibody Screen Negative 09/13/21 07:03 Vitals Last Vital Signs Temp 97.7 F 09/14/21 04:37 Pulse 82 09/14/21 04:37 Resp 16 09/14/21 04:37 BP 91/54 09/14/21 04:37 Pulse Ox 93 09/14/21 04:37 Discharge Plan Discharge Patient Disposition: Home Condition: Stable Prescriptions: New ibuprofen 800 mg Tablet 800 mg PO Q8H Qty: 30 0RF hydrocodone-acetaminophen 5-325 mg Tablet 1 tab PO Q4H PRN (Reason: Moderate To Severe Pain) Qty: 30 0RF docusate sodium 100 mg Capsule 100 mg PO BID Qty: 60 0RF Continued multivitamin Tablet 1 tab PO DAILY 0RF Tagrisso 80 mg tablet 80 mg PO DAILY 0RF trospium 20 mg tablet 20 mg PO BID 0RF Rx Instructions: administer on an empty stomach amitriptyline 50 mg tablet 50 mg PO DAILY 0RF alendronate 70 mg tablet 70 mg PO Q7D 0RF levothyroxine [Euthyrox] 75 mcg tablet 75 mcg PO DAILY 0RF potassium chloride [Klor-Con M20] 20 mEq tablet,ER particles/crystals 20 meq PO BID 0RF alprazolam 0.25 mg tablet 0.25 mg PO BID PRN (Reason: Anxiety) 0RF fluticasone propionate 50 mcg/actuation spray,suspension 1 spray intranasal DAILY 0RF Rx Instructions: administer into each nostril ascorbic acid (vitamin C) [Vitamin C] 1,000 mg Tablet 500 mg PO DAILY 0RF cetirizine 5 mg Tablet 5 mg PO DAILY 0RF famotidine 20 mg Tablet 20 mg PO BID 0RF biotin 10,000 mcg Capsule 10,000 mcg PO DAILY 0RF naproxen sodium [Aleve] 220 mg Tablet 220 mg PO BID 0RF polyethylene glycol 3350 [ClearLax] 17 gram/dose Powder 17 g PO DAILY 0RF iron 18 mg Tablet 18 mg PO DAILY 0RF calcium carbonate-vitamin D3 200 mg (500 mg) -400 unit Tablet 600 tab PO DAILY 0RF Discharge Orders: Discharge Order (Routine); Ordered 09/14/21 Ordered By: Shelly Curran Referrals: Shelly Curran MD [Physician] - 09/19/21 3:00 pm (Your 1 week incision check is scheduled for 09/19/21 @3:00. Your 6 week post-operative appointment is scheduled for 10/24/21 @12:45. 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
[2021-09-14 11:15] VITALS: BP 116/67; PULSE 81; RESP 16; TEMP 36.2
== END 2021-09-14 11:25 | disposition home or self-care (01) ==
LOC: OBGYN 11:23
PROVIDERS: Admitting Provider Obstetrics & Gynecology; PCP Family Medicine; Visit Provider Obstetrics & Gynecology
PROC: (CPT 57250; principal; 2021-09-13 07:00)
PROC: (CPT 58720; 2021-09-13 07:00)
PROC: (CPT 57250; 2021-09-13 07:00)
PROC: 0TJB8ZZ Inspection of Bladder, Via Natural or Artificial Opening Endoscopic (ICD-10-PCS; CPT 52000; 2021-09-13 07:00)
DX: N81.4 Uterovaginal prolapse, unspecified (principal); N39.46 Mixed incontinence; N81.6 Rectocele; E03.9 Hypothyroidism, unspecified; C45.0 Mesothelioma of pleura; M81.0 Age-related osteoporosis without current pathological fracture
CPT/HCPCS: 57250; 58262; 36415; 80053; 85025; 85027; 86850; 86900; 87086; 88305; 96372; G0378; J0690; J1100; J1885; J2405; J2704; J2710; J3010; J3490; J7030; J7040

== ENCOUNTER 2021-10-03 09:04 | Outpatient (CLI) | payer MEDICARE, OTHER, SELFPAY ==
--- NOTE | 2021-10-03 09:17 | CT_ITS ---
WS: [id number] CT scan of the chest With IV contrast, CT scan of the abdomen and pelvis with IV contrast and with oral contrast. Additional two-dimensional coronal and sagittal reconstruction was performed. 2 Clinical Data: ADENOCARCINOMA RIGHT LUNG Comparison: 04/11/2021. DLP: 1450.[address] scans at [facility] use at least one of these dose optimization techniques: automated e xposure control; mA and/or kV adjustment per patient size (includes targeted exams where dose is matc hed to clinical indication); or iterative reconstruction. Findings: Chest: No nodules, masses or effusions are seen. There is unchanged inferior right pleural thickening. There are right thyroid cysts and nodules unchanged. The heart size is normal with no pericardial effusion. The pulmonary arterial system and thoracic aorta demonstrate no abnormalities or dilatations. There is no axillary or significant mediastinal adenopathy. There is a small hiatal hernia. There is a 0.7 cm lymph node in the right periaortic region unchanged. Abdomen/pelvis: The lower lungs show no nodules, masses or effusions. The liver, gallbladder, spleen, adrenal glands and pancreas are normal. The kidneys show equal bilateral contrast excretion with a right renal cyst and right renal 0.6 cm up per pole stone. No masses or hydronephrosis is seen. The abdominal aorta is normal in size. No appendicitis or diverticulitis is seen. Oral contrast is in the stomach and small bowel and there is no bowel dilatation. No abscess, adenopathy, ascites, mass, obstruction or free air is seen. The bladder is unremarkable. The uterus is absent No inguinal hernia is seen. There is a stable T12 compression fracture. There is osteoarthritic change of the L4-L5 vertebra with disc narrowing. CT/CT chest abd pel w con* Impression: 1. Negative for metastatic disease. 2. No change from prior CT chest abdomen pelvis.
[2021-10-03] MEDS: iohexol 300 mg/mL 50 mL Btl PO (09:32)
[2021-10-03] MEDS: iohexol 300 mg/mL 100 mL Btl IV (10:57)
== END 2021-10-03 09:05 | disposition home or self-care (01) ==
LOC: RAD 09:06
PROVIDERS: PCP Family Medicine; Visit Provider Internal Medicine Hematology & Oncology
DX: C34.91 Malignant neoplasm of unspecified part of right bronchus or lung (principal)
CPT/HCPCS: 71260; 74177

== ENCOUNTER 2021-10-05 09:02 | Outpatient (CLI) | payer MEDICARE, OTHER, SELFPAY ==
--- NOTE | 2021-10-05 09:11 | NM_ITS ---
WS: [id number] NUCLEAR MEDICINE BONE SCAN Radiopharmaceutical: 25.1 Tc-99m MDP mCi IV Injection site: Antecubital Postinjection imaging delay: 1 hr CLINICAL INFORMATION: ADENOCARCINOMA R LUNG COMPARISON: 04/11/2021 and 12/08/2020 FINDINGS: Bone lesions: Single punctate focus of increased activity involving the RIGHT costochondral junction anteriorly approximately 8th rib. No definite corresponding lesion seen on the recent CT. Soft tissue contours: Normal. Kidneys: Normal. Other findings: Degenerative uptake involving both AC joints and both knees. Degenerative type uptake involving both ankles. Stable low-grade uptake in the T12 vertebral body consistent with previously described compression fracture similar to the prior examinations. NM/NM bone scan whole body* [id number] IMPRESSION: 1. Punctate focus of increased activity involving the RIGHT 8th rib anteriorly at the costochondral junction. This may be posttraumatic or inflammatory. [place] static disease difficult to entirely excluded. Recommend 3 month follow-up and correlation with recent trauma. No corresponding lesion seen on recent CT. 2. Otherwise no evidence of metastatic disease. 3. Stable low-grade uptake in the T12 vertebral body consistent with previousl y described compression fracture similar to the prior examinations.
== END 2021-10-05 09:03 | disposition home or self-care (01) ==
LOC: RAD 09:03
PROVIDERS: PCP Family Medicine; Visit Provider Internal Medicine Hematology & Oncology
DX: C34.91 Malignant neoplasm of unspecified part of right bronchus or lung (principal)
CPT/HCPCS: 78306; A9561

== ENCOUNTER 2021-12-28 08:07 | Outpatient (CLI) | payer MEDICARE, OTHER, SELFPAY ==
--- NOTE | 2021-12-28 08:26 | NM_ITS ---
WS: [id number] NUCLEAR MEDICINE BONE SCAN Radiopharmaceutical: 27.3 Tc-99m MDP mCi IV Injection site: Antecubital Postinjection imaging delay: 1 hr CLINICAL INFORMATION: LUNG CANCER COMPARISON: October 05, 2021 FINDINGS: Bone lesions: Previously described single punctate focus of increased activity involving the RIGHT co stochondral junction anteriorly 8th rib is unchanged in appearance. No definite corresponding lesion seen on the concurrent CT. No other suspicious lesions. Soft tissue contours: Normal. Kidneys: Normal. Other findings: Degenerative uptake involving both AC joints and both knees. Degenerative type uptake involving both ankles. Stable low-grade uptake in the T12 vertebral body consistent with previously described compression fracture similar to the prior examinations NM/NM bone scan whole body* [id number] IMPRESSION: 1. Stable punctate focus of increased activity in the RIGHT 8th rib anterior a nd laterally. This is unchanged in appearance since October 05, 2021. Differentia l considerations are unchanged including posttraumatic, inflammatory, or less l ikely metastatic disease. Recommend 6 month interval follow-up with bone scan. 2. Otherwise no evidence of metastatic disease. 3. Stable low-grade uptake in the T12 vertebral body consistent with previously described compression fracture similar to the prior examinations
--- NOTE | 2021-12-28 08:28 | CT_ITS ---
WS: [id number] CT CHEST, ABDOMEN, AND PELVIS TECHNIQUE: Contrast-enhanced CT of the chest, abdomen, and pelvis with coronal and sagittal reformatt ed images. CLINICAL INFORMATION: LUNG CANCER COMPARISON: CT 10/03/2021 and April 11, 2021 DLP: 991.[address] scans at [facility] use at least one of these dose optimization techniques: automated e xposure control; mA and/or kV adjustment per patient size (includes targeted exams where dose is matc hed to clinical indication); or iterative reconstruction. CT CHEST: Tiny right pleural effusion/pleural thickening unchanged from previous. Left lung is well aerated. Sm all bilateral thyroid nodules. Normal caliber thoracic aorta. No mediastinal or hilar lymphadenopathy . Calcified hilar lymph nodes. No axillary lymphadenopathy. CT ABDOMEN AND PELVIS: Diffuse fatty infiltration of the liver. Normal portal vein and splenic vein. Splenic granulomas. Sma ll esophageal hiatal hernia. Fatty atrophy of the pancreas. Adrenal glands are normal. Stable small right renal cyst. Normal renal parenchymal enhancement. No hydronephrosis in either kidn ey. Normal caliber abdominal aorta. Normal sigmoid colon. No evidence of high-grade small or large jeancarlos wel obstruction. No periaortic or retroperitoneal lymphadenopathy. No pelvic lymphadenopathy. No ingu inal lymphadenopathy. CT/CT chest abd pel w con* IMPRESSION: 1. No evidence of metastatic disease in the chest abdomen or pelvis. 2. No adenopathy in the chest abdomen or pelvis. 3. Stable compression fracture T12 vertebral body with loss of approximately 60 % vertebral body height is unchanged. 4. Tiny right pleural effusion/pleural thickening unchanged from previous.
[2021-12-28 11:16] LABS: Blood Urea Nitrogen 17 mg/dL (8-23)
[2021-12-28] MEDS: iohexol 350 mg/mL 100 mL Btl IV (11:37)
[2021-12-28] MEDS: iohexol 300 mg/mL 50 mL Btl PO (11:38)
== END 2021-12-28 08:08 | disposition home or self-care (01) ==
PROVIDERS: Radiology Neuroradiology; PCP Family Medicine; Visit Provider Internal Medicine Hematology & Oncology
DX: C34.91 Malignant neoplasm of unspecified part of right bronchus or lung (principal)
CPT/HCPCS: 71260; 74177; 78306; 82565; 84520; A9561

== ENCOUNTER 2022-04-04 | Outpatient (RCR) | payer MEDICARE, OTHER, SELFPAY | END 2022-04-21 23:59 | disposition home or self-care (01) | LOC: SPT | PROVIDERS: PCP Family Medicine; Visit Provider Nurse Practitioner Family | DX: M79.602 Pain in left arm (principal) | CPT/HCPCS: 97110; 97161 ==

== ENCOUNTER 2022-04-19 06:55 | Outpatient (CLI) | payer MEDICARE, OTHER, SELFPAY ==
--- NOTE | 2022-04-19 07:14 | CT_ITS ---
WS: [id number] CT CHEST, ABDOMEN AND PELVIS WITH CONTRAST HISTORY: LUNG CANCER TECHNIQUE: Contiguous 5 mm axial imaging performed through the chest, abdomen and pelvis with IV cont rast, oral contrast has been provided. Coronal and sagittal reformats chest. Coronal and sagittal ref ormats through the abdomen and pelvis. All CT scans at [facility] use at least one of these d ose optimization techniques: automated exposure control; mA and/or kV adjustment per patient size (in cludes targeted exams where dose is matched to clinical indication); or iterative reconstruction. CONTRAST: Omnipaque 350; 95 mL IV. DLP: 1452.27 mGy.cm COMPARISON: 12/28/2021 and 10/03/[address]: Mild diffuse pleural thickening throughout the RIGHT thorax is similar to prior studies. Th ere is very mild interstitial thickening and slight volume loss throughout the RIGHT lung. Linear are as of atelectasis in the RIGHT middle and RIGHT lower lobes. Mild bronchial wall thickening in the RI GHT lower lobe. All of these findings are stable. No pulmonary nodule or mass. No mediastinal or hardik r adenopathy. Heart is mildly enlarged. Stable 6 mm distal. Esophageal lymph nodes. Minimal atheroscl erosis aorta. Normal size pulmonary artery. Stable bilateral thyroid nodules with the largest on the RIGHT measuring 10 mm. No axillary adenopath y. Abdomen CT: Normal liver. No hepatic mass, metastatic lesion or bile duct dilatation. Splenic granulo koroma. Negative pancreas, gallbladder and adrenal glands. No renal mass or obstruction. 9 cortical alex cification superior pole RIGHT kidney and a small 11 mm cortical cyst. Mild atherosclerosis aorta wit h no aneurysm. No ascites, mesenteric or retroperitoneal adenopathy. Nondistended stomach. No small bowel obstruction. Moderate diffuse constipation. Normal appendix. Pelvic CT: Normally distended urinary bladder. Prior hysterectomy. No free fluid in the pelvis. No ma ss or adenopathy. Stable compression fracture with retropulsion at T12. Retropulsion by [address]/CT chest abd pel w con* IMPRESSION: 1. No metastatic disease within the chest, abdomen or pelvis. No lymphadenopat hy. 2. Mild diffuse RIGHT pleural thickening with subsegmental atelectasis in the RIGHT middle and RIGHT lower lobes. Stable. 3. Normal adrenal glands. 4. Bilateral small thyroid nodules. 5. Chronic T12 compression fracture with retropulsion by 5 mm. 6. Diffuse constipation.
[2022-04-19] MEDS: iohexol 350 mg/mL 100 mL Btl PO (07:19)
[2022-04-19 09:00] LABS: Blood Urea Nitrogen 14 mg/dL (8-23)
[2022-04-19] MEDS: iohexol 350 mg/mL 100 mL Btl IV (09:09)
== END 2022-04-19 06:56 | disposition home or self-care (01) ==
LOC: RAD 06:56
PROVIDERS: Radiology Neuroradiology; PCP Family Medicine; Visit Provider Internal Medicine Hematology & Oncology
DX: C34.91 Malignant neoplasm of unspecified part of right bronchus or lung (principal); E04.2 Nontoxic multinodular goiter; M48.54XA Collapsed vertebra, not elsewhere classified, thoracic region, initial encounter for fracture; K59.00 Constipation, unspecified
CPT/HCPCS: 71260; 74177; 82565; 84520

== ENCOUNTER 2022-04-22 06:00 | Outpatient (RCR) | payer MEDICARE, OTHER, SELFPAY | END 2022-05-09 23:59 | disposition home or self-care (01) | LOC: SPT 06:00 | PROVIDERS: PCP Family Medicine; Visit Provider Nurse Practitioner Family | DX: M79.602 Pain in left arm (principal) | CPT/HCPCS: 97110 ==

== ENCOUNTER 2022-04-26 07:30 | Outpatient (CLI) | payer MEDICARE, OTHER, SELFPAY ==
--- NOTE | 2022-04-26 07:46 | NM_ITS ---
WS: [email or web address] NUCLEAR MEDICINE BONE SCAN Radiopharmaceutical: 25.3 Tc-99m MDP mCi IV Injection site: RIGHT antecubital Postinjection imaging delay: 1 hr CLINICAL INFORMATION: ADENOCARCINOMA OF LUNG COMPARISON: December 28, 2021 FINDINGS: Bone lesions: Punctate focus of increased activity in the RIGHT 8th rib anterior and laterally has de creased in intensity since 2021. Differential considerations are unchanged including posttrauma tic, inflammatory, or less likely metastatic disease considering improvement. Stable low-grade uptake in the T12 vertebral body consistent with previously described compression fracture similar to the p rior examinations Soft tissue contours: Normal. Kidneys: Normal. Other findings: Degenerative arthritis both AC joints. NM/NM bone scan whole body* [id number] IMPRESSION: 1. Improving punctate focus of increased activity in the RIGHT 8th rib anterio r and laterally described above. 2. Stable low-grade uptake in the T12 vertebral body consistent with previousl y described compression fracture similar to the prior examinations 3. Otherwise no evidence of osseous metastatic disease.
== END 2022-04-26 07:31 | disposition home or self-care (01) ==
PROVIDERS: PCP Family Medicine; Visit Provider Internal Medicine Hematology & Oncology
DX: C34.91 Malignant neoplasm of unspecified part of right bronchus or lung (principal)
CPT/HCPCS: 78306; A9561

== ENCOUNTER 2022-11-23 14:59 | Outpatient (CLI) | payer MEDICARE, OTHER, SELFPAY ==
--- NOTE | 2022-11-23 15:12 | CTR_ITS ---
PROCEDURE INFORMATION: Exam: CT Chest With Contrast; Diagnostic Exam date and time: 11/23/2022 4:28 PM Age: 76 years old Clinical indication: Condition or disease; Other: Right lung; Lung condition and disease; Cancer of the lung; Unspecified; Follow-up oncological assessment; Prior surgery; Surgery type: Breast tumors; Patient HX: Lung CA PT has been taking chemo pills x6 yrs; Additional info: Lung cancer right lung TECHNIQUE: Imaging protocol: Diagnostic computed tomography of the chest with contrast. Radiation optimization: All CT scans at this facility use at least one of these dose optimization techniques: automated exposure control; mA and/or kV adjustment per patient size (includes targeted exams where dose is matched to clinical indication); or iterative reconstruction. Contrast material: OMNI 350; Contrast volume: 95 ml; Contrast route: INTRAVENOUS (IV); REPORTING DATA: Count of CT and Cardiac NM exams in prior 12 months: This patient has received 2 known CTs and 0 known cardiac nuclear medicine studies in the 12 months prior to the current study. COMPARISON: CT chest abdpel w/*[id number] 04/19/2022 9:00 AM RADIATION DOSE METRICS: Total DLP (mGy-cm): 633.48 FINDINGS: Thyroid: Unchanged heterogeneous attenuation of the thyroid glands is seen with multiple low-attenuation nodules, the largest measuring 1.1 x 1.2 cm. No further follow-up is necessary per ACR recommendations. Trachea: The trachea is midline. Lungs: Unchanged mild right hemithorax pleural thickening is seen, most prominent in the right lung base. Unchanged fissural thickening is seen. Unchanged mild volume loss in the right hemithorax with some unchanged atelectasis in the right middle lobe and right lower lobe regions. No regions of consolidation. No interlobular septal thickening or honeycombing seen to suggest interstitial lung disease on CT. Pleural spaces: No pleural effusions or pneumothorax. Heart: The cardiac chamber size is normal. No pericardial effusion. Mediastinal space: Some contrast is seen in the esophagus, which may represent some gastroesophageal reflux. Lymph nodes: Unchanged aortopulmonic window and left hilar calcified lymph nodes are seen, representing old granulomatous disease. Unchanged enlarged aortopulmonic window lymph nodes are seen, the largest measuring 1 x 1.3 cm. Unchanged 0.6 x 0.6 cm distal esophageal prominent lymph node. Vasculature: No thoracic aortic aneurysm or dissection. The central pulmonary arteries appear normal. Bones/joints: Unchanged superior endplate compression fracture of the T12 vertebral body is seen with 75% anterior vertebral body height loss and 0.5 cm retrolisthesis of the upper aspect of the vertebral body. Unchanged [id number] central spinal stenosis at this level. Soft tissues: Unremarkable. PROCEDURE INFORMATION: Exam: CT Abdomen And Pelvis With Contrast Exam date and time: 11/23/2022 4:28 PM Age: 76 years old Clinical indication: Condition or disease; Other: Right lung; Lung condition and disease; Cancer of the lung; Unspecified; Follow-up oncological assessment; Prior surgery; Surgery type: Breast tumors; Patient HX: Lung CA PT has been taking chemo pills x6 yrs; Additional info: Lung cancer right lung TECHNIQUE: Imaging protocol: Computed tomography of the abdomen and pelvis with contrast. Radiation optimization: All CT scans at this facility use at least one of these dose optimization techniques: automated exposure control; mA and/or kV adjustment per patient size (includes targeted exams where dose is matched to clinical indication); or iterative reconstruction. Contrast material: OMNI 350; Contrast volume: 95 ml; Contrast route: INTRAVENOUS (IV); REPORTING DATA: Count of CT and Cardiac NM exams in prior 12 months: This patient has received 2 known CTs and 0 known cardiac nuclear medicine studies in the 12 months prior to the current study. COMPARISON: CT chest abdpel w/*[id number] 04/19/2022 9:00 AM RADIATION DOSE METRICS: Total DLP (mGy-cm): 633.48 FINDINGS: Liver: Normal liver attenuation. No mass. Gallbladder and bile ducts: No calcified stones. No biliary ductal dilatation. Pancreas: Some fatty atrophic changes of the pancreas are seen. No mass or ductal dilatation seen on CT. Spleen: Normal splenic parenchymal attenuation. No splenomegaly. Adrenal glands: Normal CT appearance of the adrenals. No mass. Kidneys and ureters: Some tiny 0.2-0.4 cm scattered renal cysts are incidentally noted. Unchanged right kidney upper pole simple 1 x 1 cm cyst is seen. Unchanged right kidney upper pole region of cortical scarring is seen with small calcification. No renal masses seen. No hydronephrosis. Stomach and bowel: The contrast opacified stomach appears unremarkable. Unchanged small hiatal hernia. The partially contrast opacified loops of small bowel in the abdomen and pelvis show some mild to moderately distended fluid-filled loops of distal small bowel. The noncontrast opacified loops of colon show some fluid in the ascending colon. These are nonspecific findings that can be seen with enteritis or adynamic ileus. Moderate fecal material is seen in the remainder of the colon. Unchanged [id number] sigmoid colonic diverticulosis, without CT evidence of diverticulitis. Appendix: No evidence of appendicitis. Intraperitoneal space: No free air. No significant fluid collection. Vasculature: No abdominal aortic aneurysm. Inferior vena cava and portal vein appear unremarkable. Lymph nodes: No enlarged lymph nodes. Urinary bladder: No bladder debris. No wall thickening. Reproductive: Status post prior hysterectomy. Bones/joints: Unchanged severe degenerative disc disease changes with vacuum phenomenon are seen at the L4-L5 level. Unchanged 0.1 cm retrolisthesis of L4 on L5. Some unchanged degenerative facet disease changes are seen throughout the lumbar spine. Unchanged mild bilateral hip, moderate symphysis pubis and sacroiliac joint degenerative changes. Soft tissues: Unremarkable. CT/CT chest abdpel w/*[id number] IMPRESSION: 1. Unchanged mild right hemithorax pleural thickening, most prominent in the right lung base. Unchanged mild volume loss in the right hemithorax with some unchanged atelectasis in the right middle lobe and right lower lobe regions. No CT evidence of pneumonia. 2. Unchanged enlarged aortopulmonic window and prominent distal esophageal lymph node. 3. Unchanged superior endplate compression fracture of the T12 vertebral body, as noted above. Unchanged 0.5 cm retrolisthesis of the upper aspect of the vertebral body with [id number] central spinal stenosis at this level. 4. Some contrast in the esophagus, suggestive of gastroesophageal reflux. IMPRESSION: 1. No abdominal masses or lymphadenopathy. 2. Some mild to moderately distended fluid-filled loops of distal small bowel. Some fluid in the ascending colon. These are nonspecific findings that can be seen with enteritis or adynamic ileus. Moderate fecal material seen in the remainder of the colon. 3. Other chronic findings, as noted above. COMMENTS: Consistent with the [employer]'s Incidental Findings Committee white paper (J Am Jaci Radiol 2018): Any incidental renal lesion less than 1 cm or classified as too small to characterize, or any incidental cystic renal lesion characterized as simple-appearing, is likely benign. No follow-up imaging is recommended for these lesions per consensus recommendations based on imaging criteria.
[2022-11-23] MEDS: iohexol 350 mg/mL 500 mL Btl (per mL) PO (16:04)
[2022-11-23 16:23] LABS: Blood Urea Nitrogen 20 mg/dL (8-23)
[2022-11-23] MEDS: iohexol 350 mg/mL 500 mL Btl (per mL) IV (16:32)
== END 2022-11-23 15:00 | disposition home or self-care (01) ==
LOC: RAD 15:03
PROVIDERS: PCP Family Medicine; Visit Provider Internal Medicine Hematology & Oncology
DX: C34.91 Malignant neoplasm of unspecified part of right bronchus or lung (principal)
CPT/HCPCS: 71260; 74177; 82565; 84520; Q9967

== ENCOUNTER 2022-11-30 08:07 | Outpatient (CLI) | payer MEDICARE, OTHER, SELFPAY ==
--- NOTE | 2022-11-30 08:16 | NM_ITS ---
WS: [id number] NUCLEAR MEDICINE BONE SCAN Radiopharmaceutical: 24.9 Tc-99m MDP mCi IV Injection site: antecubital Postinjection imaging delay: 1 hr CLINICAL INFORMATION: RIGHT LUNG CANCER COMPARISON: April 26, 2022 FINDINGS: Bone lesions: There are no osseous lesions suspicious for metastatic disease. Improved and nearly res olved uptake in the T12 vertebral body. Stable punctate focus of increased uptake in the RIGHT 8th ri b anteriorly and laterally Soft tissue contours: Normal. Kidneys: Normal. Other findings: None. NM/NM bone scan whole body* [id number] IMPRESSION: 1. Previously described increased activity in the T12 vertebral body compatibl e with previously described compression fracture has improved and nearly resolv ed. 2. Stable punctate focus of increased uptake in the RIGHT 8th rib anteriorly a nd laterally 3. Otherwise no evidence of osseous metastatic disease.
== END 2022-11-30 08:08 | disposition home or self-care (01) ==
LOC: RAD 08:13
PROVIDERS: PCP Family Medicine; Visit Provider Internal Medicine Hematology & Oncology
DX: C34.91 Malignant neoplasm of unspecified part of right bronchus or lung (principal)
CPT/HCPCS: 78306; A9561

== ENCOUNTER 2023-01-27 13:40 | Emergency (ER) | payer MEDICARE, OTHER, SELFPAY ==
[2023-01-27] VITALS (19 sets, daily range): BP systolic 100–170; BP diastolic 52–107; PULSE 83–109; RESP 16–26; TEMP 36.3; O2SAT 91–100
--- NOTE | 2023-01-27 13:54 | CTR_ITS ---
PROCEDURE INFORMATION: Exam: CT Head Without Contrast Exam date and time: 01/27/2023 1:55 PM Age: 77 years old Clinical indication: Stroke-like symptoms; Speech disturbance; Additional info: Symptoms of acute stroke TECHNIQUE: Imaging protocol: Computed tomography of the head without contrast. Radiation optimization: All CT scans at this facility use at least one of these dose optimization techniques: automated exposure control; mA and/or kV adjustment per patient size (includes targeted exams where dose is matched to clinical indication); or iterative reconstruction. Other technique: STROKE PROTOCOL was implemented. REPORTING DATA: Count of CT and Cardiac NM exams in prior 12 months: This patient has received 2 known CTs and 0 known cardiac nuclear medicine studies in the 12 months prior to the current study. COMPARISON: NM bone scan whole body* [id number] 11/30/2022 8:16 AM RADIATION DOSE METRICS: Total DLP (mGy-cm): 987.84 FINDINGS: Brain: Mild senescent changes. No hemorrhage. Unremarkable white matter. No mass effect. No findings to indicate regional or territorial ischemic infarct. Cerebral ventricles: No ventriculomegaly. Paranasal sinuses: Visualized sinuses are unremarkable. No fluid levels. Mastoid air cells: Visualized mastoid air cells are well aerated. Bones/joints: Unremarkable. Soft tissues: Unremarkable. CT/CT head thrombolytic [id number] IMPRESSION: No acute intracranial abnormality. ASSESSMENT: ASPECTS ([place] Stroke Program Early CT Score) is 10.
--- NOTE | 2023-01-27 14:03 | W.ED.NEUROSD ---
HPI - Neuro Symptoms/Deficit General: Chief Complaint: Neuro Symptoms/Deficit Stated Complaint: Confusion, Weakness, Slurred speech Time Seen by Provider: 01/27/23 13:54 Source: patient and family Mode of arrival: ambulatory History of Present Illness: 77-year-old female who presents to the emergency room with complaints of difficulty speaking. Her last known well was around 10:00 this morning. Her was with her at that time and she seemed completely normal she was trying to do laundry and began having difficulty with it at around noon she called her they arrived in the emergency room at 1340. Time: 13:40 Last Observed Normal: 10:00 Timing confirmed by: spouse Location: speech History of same: No Severity: moderate Relieving factors: none Exacerbating factors: none Context: sudden onset Associated symptoms: Deny chest pain, cough, diaphoresis, fevers/chills, headache(s), anorexia, malaise, nausea, seizures, short of breath, syncope, tingling, vertigo, vomiting or weakness Review of Systems Const: Denies: fever(s), chills, malaise or diaphoresis ENMT: Denies: throat pain, ear or mastoid pain, nasal discharge or nasal congestion Card: Denies: chest pain or syncope Resp: Denies: dyspnea, productive cough or non-productive cough GI: Denies: nausea or vomiting : Denies: flank pain, difficulty voiding, dysuria, urinary frequency or urinary urgency Musc: Denies: neck pain or back pain Skin/Breast: Denies: rash or pruritus Neuro: Denies: headache(s) or vertigo PFSH ED PFSH: Medical History Hypothyroidism Insomnia Osteoporosis 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 Seasonal allergies Surgical History H/O arthroscopic knee surgery History of lumpectomy of both breasts Family History Grandfather Bleeding disorder paternal Father CAD (coronary artery disease) Mother Cancer colon cancer Hypertension Stroke Denies family history of Diabetes Clotting disorder Hyperlipidemia Chronic kidney disease (CKD) Thyroid disease Social History Smoking and tobacco status: never smoked NIH stroke score NIHSS: Level Of Consciousness - 1a: 0 Level Of Consciousness Questions - 1b: Both Correct Level Of Consciousness Commands - 1c: Both Correct Best Gaze - 2: Normal Visual Hooks - 3: No Visual Loss Facial Palsy - 4: Normal Motor Arm Right - 5: No Drift Motor Arm Left - 5: No Drift Motor Leg Right - 6: No Drift Motor Leg Left - 6: No Drift Limb Ataxia - 7: Absent Sensory - 8: Normal Best Language - 9: Mild/Moderate Aphasia Dysarthia - 10: Severe Dysarthia Extinction And Inattention - 11: 0 Score: Total Score: 3 Physical Exam Const: GENERAL APPEARANCE: cooperative and comfortable ORIENTATION/CONSCIOUSNESS: Yes awake, Yes oriented to person, Yes oriented to place and Yes oriented to time HENMT: COMMON NORMALS: normocephalic, atraumatic and hearing grossly normal bilaterally HEAD & SCALP: normocephalic and atraumatic Resp: COMMON NORMALS: normal respiratory effort, No retractions, No use of accessory muscles and clear to auscultation bilaterally AUSCULTATION: clear to auscultation bilaterally Cardio: COMMON NORMALS: regular rate, regular rhythm and No murmurs present (Cardio) RATE: regular rate RHYTHM: regular rhythm GI: COMMON NORMALS: Soft to palpation and No hepatosplenomegaly present AUSCULTATION: Yes normoactive bowel sounds PALPATION: Yes Soft to palpation, No Tenderness to palpation present (GI), No Guarding due to palpation present (GI) and Yes No hepatosplenomegaly present Extremity: COMMON NORMALS: normal to inspection, capillary refill normal, no clubbing, cyanosis or edema, no calf tenderness and no pedal edema Neuro: SENSORIUM/ORIENTATION: Yes oriented to person, Yes oriented to place and Yes oriented to time Skin: COMMON NORMALS: no rashes or lesions noted GENERAL SKIN EXAM: no rashes or lesions noted Course Vital Signs: Vital signs: Vital Signs Temperature 97.3 F L 01/27/23 18:02 Pulse Rate 87 01/27/23 18:02 Respiratory Rate 16 01/27/23 18:02 Blood Pressure 148/88 01/27/23 18:02 Pulse Oximetry 92 01/27/23 18:02 Oxygen Delivery Me thod Nasal Cannula 01/27/23 17:35 Oxygen Flow Rate 4 01/27/23 17:35 MDM - Neuro Symptoms/Deficit Medical Decision Making Discussed with on-call neurology at [facility] Dr. Ortega. This is fairly debilitating and obviously frustrating for the patient already having the difficulty with this expressive dysarthria. She understands multistep commands and can execute them well but she is not able to verbally answer questions that she knows the answer to and gets visibly frustrated. Dr. Ortega felt that since this was fairly debilitating it would be worthwhile to offer her tPA. Were at the edge of the acceptable timeframe at this point. I presented this to the family they asked that we call their daughter I called and discussed with the patient's daughter. She verified that all of these things are new while she has noted some memory issues at times she usually is able to enunciate things well and recall birthdates phone numbers etc. without any difficulty expressing them both the patient and her and her daughter wish to proceed. I did discuss with them the risk of bleeding the timeframe and the NIH score. They still would like to proceed at this point and understand the risks involved. We believe that her last known well time is sooner than the 10:00 that her stated as she called around 1230 when she reports her symptoms began. After receiving tPA patient began to complain of the headache I reevaluated her she had no worsening neurologic deficits but no improvements. Approximately 20 minutes later the staff noted that she had vomited a repeat CT shows an area of subacute hemorrhage however it is on the right and the temporal parietal lobe is about 2 to 3 cm it appears to be almost encapsulated. Discussed with neurology is not in the area that we would have expected based on her stroke symptoms. There is nothing present on the original CT suggestive of abnormal lesion there. Per neurology recommendations gave transischemic acid and will transferred to [facility] for neurosurgical and neurology evaluation discussed with the family. Patient be transferred ER to ER discussed with ER physician at [facility]. Transferred in stable condition on nicardipine drip with a target blood pressure of less than 140 systolic. Medical Records I reviewed the patient's medical records. Lab Data I reviewed the patient's lab results. 01/27/23 14:20 01/27/23 14:[address] 01/27/23 15:46 IMPRESSION: 1. Interval change in appearance from earlier exam involving the right temporoparietal lobe, particularly right parietal lobe and superiorly. There is suggestion of effacement of sulci on the right. In addition, subtle hyperdensity is seen in the right parietal lobe superiorly which could indicate subtle hemorrhage or appearance associated with reperfusion post tPA in a CVA setting. However, a rounded subtle hyperdense focus is seen in the posterosuperior right parietal lobe as well of approximally 3 x 2 cm raising the possibility of developing subtle hematoma or other subtle slightly hyperdense mass (other mass less likely without findings on previous exam). 2. Close interval follow-up versus further evaluation with MRI. ADDENDUM: 01/27/23 6700 THIS REPORT CONTAINS FINDINGS THAT MAY BE CRITICAL TO PATIENT CARE. The findings were verbally communicated via telephone conference with Dr. Reid at 4:58 PM CDT on 01/27/2023. The findings were acknowledged and understood. Chest X-Ray 01/27/23 17:04 IMPRESSION: Opacity or infiltrate within the lower right lung or lung base suggesting pneumonia, including possible aspiration. Probable mild chronic pleural thickening on the right with prior CT exam. Laboratory Results WBC 9.4 10^3/uL (4.0-10.0) 01/27/23 14:20 RBC 4.26 10^6/uL (4.1-5.3) 01/27/23 14:20 Hgb 12.4 g/dL (11.5-15.3) 01/27/23 14:20 Hct 38.9 % (37.0-47.0) 01/27/23 14:20 MCV 91.3 fl (81-99) 01/27/23 14:20 MCH 29.1 pg (28.0-34.0) 01/27/23 14:20 MCHC 31.9 g/dL (30.0-36.0) 01/27/23 14:20 RDW 13.9 % (12.1-15.1) 01/27/23 14:20 Plt Count 142 10^3/cmm (130-400) 01/27/23 14:20 MPV 10.4 fL (7.4-10.4) 01/27/23 14:20 Neut % (Auto) 75.0 % 01/27/23 14:20 Lymph % (Auto) 10.4 % 01/27/23 14:20 Pope % (Auto) 12.3 % 01/27/23 14:20 Eos % (Auto) 0.7 % 01/27/23 14:20 Baso % (Auto) 0.4 % 01/27/23 14:20 Neut # (Auto) 7.02 10^3/uL (1.8-7.7) 01/27/23 14:20 Lymph # (Auto) 1.0 10^3/uL (0.8-4.8) 01/27/23 14:20 Pope # (Auto) 1.2 10^3/uL (0.2-0.9) H 01/27/23 14:20 Eos # (Auto) 0.1 10^3/uL (0.0-0.8) 01/27/23 14:20 Baso # (Auto) 0.0 10^3/uL (0.0-0.1) 01/27/23 14:20 Nucleated RBC % (auto) 0 % 01/27/23 14:20 Nucleated RBCs # 0.0 /100WBC 01/27/23 14:20 PT 12.90 SECONDS (12.1-14.9) 01/27/23 14:20 INR 0.94 (0.8-1.2) 01/27/23 14:20 APTT 20.9 SECONDS (23.9-36.7) L 01/27/23 14:20 Sodium 136 mmol/L (136-145) 01/27/23 14:20 Potassium 3.5 mmol/L (3.5-5.1) 01/27/23 14:20 Chloride 101 mmol/L (98-107) 01/27/23 14:20 Carbon Dioxide 27 mmol/L (22-29) 01/27/23 14:20 Anion Gap 11.5 (5-19) 01/27/23 14:20 BUN 21 mg/dL (8-23) 01/27/23 14:20 Creatinine 0.7 mg/dL (0.5-0.9) 01/27/23 14:20 GFR Calculation Not Reportable 01/27/23 14:20 Glucose 84 mg/dL (65-115) 01/27/23 14:20 POC Glucose 85 mg/dL (70-110) 01/27/23 14:16 Calculated Osmolality 284 mOsm/kg (285-295) L 01/27/23 14:20 Calcium 8.2 mg/dL (8.5-10.5) L 01/27/23 14:20 Total Bilirubin 0.2 mg/dL (0.15-1.2) 01/27/23 14:20 AST 34 U/L (0-32) H 01/27/23 14:20 ALT 26 U/L (0-33) 01/27/23 14:20 Alkaline Phosphatase 77 U/L (35-105) 01/27/23 14:20 Total Protein 4.7 g/dL (6.6-8.7) L 01/27/23 14:20 Albumin 2.9 g/dL (3.5-5.2) L 01/27/23 14:20 Globulin 1.8 g/dL (1.3-4.6) 01/27/23 14:20 Urine Color Straw (Yellow) 01/27/23 15:52 Urine Appearance Clear (CLEAR) 01/27/23 15:52 Urine pH 7 (5-7) 01/27/23 15:52 Ur Specific [place] 1.005 (1.005-1.030) 01/27/23 15:52 Urine Protein Neg (Negative) 01/27/23 15:52 Urine Glucose (UA) Norm (Normal) 01/27/23 15:52 Urine Ketones Negative (Negative) 01/27/23 15:52 Urine Blood Neg (Negative) 01/27/23 15:52 Urine Nitrate Negative (Negative) 01/27/23 15:52 Urine Bilirubin Neg (Negative) 01/27/23 15:52 Urine Urobilinogen Norm mg/dL (Negative) 01/27/23 15:52 Ur Leukocyte Esterase Negative (Negative) 01/27/23 15:52 Urine Opiates Screen Negative ng/mL (Negative) 01/27/23 15:52 Ur Barbiturates Screen Negative ng/mL (Negative) 01/27/23 15:52 Ur Phencyclidine Scrn Negative ng/mL (Negative) 01/27/23 15:52 Ur Amphetamines Screen Negative ng/mL (Negative) 01/27/23 15:52 U Benzodiazepines Scrn Negative ng/mL (Negative) 01/27/23 15:52 Urine Cocaine Screen Negative ng/mL (Negative) 01/27/23 15:52 U Marijuana (THC) Screen Negative ng/mL (Negative) 01/27/23 15:52 Discharge Plan Discharge Patient Disposition: Transfer to ED Clinical Impression: Cerebrovascular accident, Received intravenous tissue plasminogen activator (tPA) in emergency department, Intracranial hemorrhage after administration of thrombolytic agent Condition: Stable Prescriptions: No Action multivitamin Tablet 1 tab PO DAILY levothyroxine [Euthyrox] 75 mcg tablet 75 mcg PO DAILY Tagrisso 80 mg tablet 80 mg PO DAILY amitriptyline 50 mg tablet 50 mg PO DAILY alendronate 70 mg tablet 70 mg PO Q7D Rx Instructions: ON SUNDAY potassium chloride [Klor-Con M20] 20 mEq tablet,ER particles/crystals 20 meq PO BID alprazolam 0.25 mg tablet 0.25 mg PO BID PRN (Reason: Anxiety) fluticasone propionate 50 mcg/actuation spray,suspension 1 spray intranasal DAILY Rx Instructions: administer into each nostril mupirocin 2 % ointment 1 applic topical BID Qty: 22 1RF Rx Instructions: Apply to affected area on left arm until healed ascorbic acid (vitamin C) [Vitamin C] 1,000 mg Tablet 500 mg PO DAILY cetirizine 5 mg Tablet 5 mg PO DAILY famotidine 20 mg Tablet 20 mg PO BID biotin 10,000 mcg Capsule 10,000 mcg PO DAILY polyethylene glycol 3350 [ClearLax] 17 gram/dose Powder 17 g PO DAILY iron 18 mg Tablet 18 mg PO DAILY docusate sodium 100 mg Capsule 100 mg PO BID Qty: 60 0RF oxybutynin chloride 5 mg tablet extended release 24hr 5 mg PO DAILY Ventolin HFA 90 mcg/actuation HFA aerosol inhaler 1 puff INHALATION Q4H PRN (Reason: Shortness Of Breath Or Wheezing) Calcium 500 + D (D3) 500 mg-3.125 mcg (125 unit) Tablet 1 tab PO DAILY Referrals: Nettie Márquez DO [Primary Care Provider] - Coding Level of Care Code ED Rental Salesperson for [employer]
--- NOTE | 2023-01-27 14:11 | ECG_ITS ---
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 Measurements Intervals [place] Rate: 83 P: 41 TX: 164 QRS: -46 QRSD: 141 T: 268 QT: 439 QTc: 518 Interpretive Statements SINUS RHYTHM POSSIBLE LEFT ATRIAL ENLARGEMENT [-0.1mV P-WAVE IN V1/V2] LEFT AXIS DEVIATION [QRS AXIS < -30] INTRAVENTRICULAR CONDUCTION DELAY [130+ ms QRS DURATION] No previous ECG available for comparison Electronically Signed On 01-28-2023 9:42:26 CDT by Medardo Kinsey M.D. [id number]
[2023-01-27 14:19] LABS: Glucose Point of Care 85 mg/dL (70-110)
[2023-01-27 14:54] LABS: Basophils % 0.4 %; Eosinophils # 0.1 10^3/uL (0.0-0.8); Eosinophils % 0.7 %; Hematocrit 38.9 % (37.0-47.0); Hemoglobin 12.4 g/dL (11.5-15.3); Lymphocytes % 10.4 %; Mean Corpuscular HGB Conc 31.9 g/dL (30.0-36.0); Mean Corpuscular Hemoglobin 29.1 pg (28.0-34.0); Mean Corpuscular Volume 91.3 fl (81-99); Mean Platelet Volume 10.4 fL (7.4-10.4); Monocytes # 1.2 10^3/uL (0.2-0.9); Monocytes % 12.3 %; Neutrophils # 7.02 10^3/uL (1.8-7.7); Nucleated Red Blood Cells % 0 %; Platelet Count 142 10^3/cmm (130-400); Red Blood Count 4.26 10^6/uL (4.1-5.3); Red Cell Distribution Width 13.9 % (12.1-15.1); White Blood Count 9.4 10^3/uL (4.0-10.0)
[2023-01-27 15:18] LABS: INR 0.94 (0.8-1.2); Partial Thromboplastin Time 20.9 SECONDS (23.9-36.7)
[2023-01-27 15:24] LABS: Alanine Aminotransferase 26 U/L (0-33); Albumin Level 2.9 g/dL (3.5-5.2); Alkaline Phosphatase 77 U/L (35-105); Anion Gap 11.5 (5-19); Aspartate Amino Transferase 34 U/L (0-32); Blood Urea Nitrogen 21 mg/dL (8-23); Calcium 8.2 mg/dL (8.5-10.5); Carbon Dioxide 27 mmol/L (22-29); Chloride 101 mmol/L (98-107); Globulin 1.8 g/dL (1.3-4.6); Glucose 84 mg/dL (65-115); Osmolality Calculated 284 mOsm/kg (285-295); Potassium 3.5 mmol/L (3.5-5.1); Sodium 136 mmol/L (136-145); Total Bilirubin 0.2 mg/dL (0.15-1.2); Total Protein 4.7 g/dL (6.6-8.7)
--- NOTE | 2023-01-27 15:46 | CTR_ITS ---
PROCEDURE INFORMATION: Exam: CT Head Without Contrast Exam date and time: 01/27/2023 4:11 PM Age: 77 years old Clinical indication: Stroke-like symptoms; Other: N/v S/P tpa TECHNIQUE: Imaging protocol: Computed tomography of the head without contrast. Radiation optimization: All CT scans at this facility use at least one of these dose optimization techniques: automated exposure control; mA and/or kV adjustment per patient size (includes targeted exams where dose is matched to clinical indication); or iterative reconstruction. Other technique: STROKE PROTOCOL was implemented. REPORTING DATA: Count of CT and Cardiac NM exams in prior 12 months: This patient has received 2 known CTs and 0 known cardiac nuclear medicine studies in the 12 months prior to the current study. COMPARISON: CT head thrombolytic [id number] 01/27/2023 1:55 PM RADIATION DOSE METRICS: Total DLP (mGy-cm): 1126.42 FINDINGS: Brain: Comparison with earlier exam demonstrates interval effacement of sulci within the right temporoparietal region, more prominent right parietal region. A rounded subtle hyperdense focus is seen within the posterosuperior right parietal lobe of approximally 3 x 2 cm that is new from previous exam, with subtle peripheral hyperdensity and subtle hyperdensity in the adjacent right parietal lobe more superiorly. Findings could indicate subtle hemorrhage in the right posterior parietal lobe. However, rounded appearance could indicate developing subtle hematoma versus other subtle mass (less likely when compared with previous CT). There could be some component of reperfusion appearance post tPA in a CVA setting with sulci effacement on the right, as well. No significant midline shift. Cerebral ventricles: No significant ventriculomegaly. Paranasal sinuses: Visualized sinuses are unremarkable. No fluid levels. Mastoid air cells: Visualized mastoid air cells are well aerated. Bones/joints: Bone windows show no acute skull abnormalities. Soft tissues: No acute soft tissue abnormality. CT/CT head wo con* [id number] IMPRESSION: 1. Interval change in appearance from earlier exam involving the right temporoparietal lobe, particularly right parietal lobe and superiorly. There is suggestion of effacement of sulci on the right. In addition, subtle hyperdensity is seen in the right parietal lobe superiorly which could indicate subtle hemorrhage or appearance associated with reperfusion post tPA in a CVA setting. However, a rounded subtle hyperdense focus is seen in the posterosuperior right parietal lobe as well of approximally 3 x 2 cm raising the possibility of developing subtle hematoma or other subtle slightly hyperdense mass (other mass less likely without findings on previous exam). 2. Close interval follow-up versus further evaluation with MRI.
[2023-01-27] MEDS: sodium chloride 0.9% 50 ML 200 ML IV (15:47)
[2023-01-27] MEDS: ondansetron 2 mg/ML SDV 2 mL 4 MG IVP (15:58)
--- NOTE | 2023-01-27 16:04 | PC.NURSE ---
Pt stated to RN in the room at 1535 that she was experiencing a mild headache. RN notified MD. MD at bedside performed NIHSS scale with no changes. MD authorized continuing tPA. At 1550, Pt vomited with RN at bedside. MD notified. MD ordered 4 mg zofran. MD authorized continuation of tPA. At 1602, RN performed neurological assessment. Pt seemed to be quicker at replying with less searching of words. Pt also feeling tired and sleepy. tPA completed at 1557. NS initiated at 1557.
[2023-01-27 16:06] LABS: Add Urine Microscopic? NO; Charge for UA Resulting for Rev
[2023-01-27 16:13] LABS: Bilirubin Urine Neg (Negative); Blood Urine Neg (Negative); Glucose Urine UA Norm (Normal); Ketones Urine Negative (Negative); Leukocyte Esterase Urine Negative (Negative); Nitrate Urine Negative (Negative); Protein Urine Neg (Negative); Specific Gravity, Urine 1.005 (1.005-1.030); Urine Appearance Clear (CLEAR); Urine Color Straw (Yellow); Urobilinogen Urine Norm (Negative); pH Urine 7 (5-7)
[2023-01-27 16:22] LABS: Amphetamines Screen Urine Negative (Negative); Barbiturates Screen Urine Negative (Negative); Benzodiazepines Screen Urine Negative (Negative); Cocaine Screen Urine Negative (Negative); Opiate Screen Urine Negative (Negative); PCP Screen Urine Negative (Negative); THC Screen Urine Negative (Negative)
--- NOTE | 2023-01-27 16:57 | PC.NURSE ---
RN into room to assess pt neurological status. Pt is now unsure of birthday and stating her age is 69. Pt was previously getting name, age, birthday, and situation correct. Pt is laying in bed with eyes closed, stating she has a headache. MD at bedside assessing pt at this time. Pulling Machine Operator are equal and strong, leg raises are 5+ ROM without difficulty. Pt is still replying at the same rate. No drooping noted.
--- NOTE | 2023-01-27 17:04 | XRR_ITS ---
PROCEDURE INFORMATION: Exam: XR Chest Exam date and time: 01/27/2023 5:45 PM Age: 77 years old Clinical indication: Cough and dyspnea; Additional info: Dyspnea/cough TECHNIQUE: Imaging protocol: Radiologic exam of the chest. Views: 1 view. COMPARISON: CT chest abdpel w/*[id number] 11/23/2022 4:28 PM FINDINGS: Lungs: Opacity is seen within the lower right lung and lung base along with mild blunting of the right costophrenic angle. Findings suggest infiltrate or pneumonia in the right lung base including possible aspiration. Mild blunting of the right costophrenic angle may reflect pleural thickening that was seen with prior CT chest December 13, 2022. No pneumothorax. Pleural spaces: See Lungs finding. Heart/Mediastinum: Borderline cardiac size. Bones/joints: Visualized osseous structures show no acute abnormality. XR/XR chest 1V portable [id number] IMPRESSION: Opacity or infiltrate within the lower right lung or lung base suggesting pneumonia, including possible aspiration. Probable mild chronic pleural thickening on the right with prior CT exam.
--- NOTE | 2023-01-27 17:16 | PC.NURSE ---
RN into room to assess pt. Pt headache increasing at 1715. MD at bedside. MD order to administer txa. RN in room during txa administration. Pt is still experiencing headache and now starting to groan on expiration. Pt is aware of name, situation. Pt requesting to ambulate to bedside commode. Pt unable to open eyes to see commode and put back into bed by RN. López catheter placed at 1730.
[2023-01-27] MEDS: nicardipine 20 MG/200 ML PREMIX 50 MG IV (17:40)
[2023-01-27] MEDS: metoclopramide 5 mg/mL SDV 2 mL 10 MG IVP (17:45)
--- NOTE | 2023-01-27 18:02 | PC.NURSE ---
Pt departed facility at 1755. Pt stable upon departure.
== END 2023-01-27 18:04 ==
PROVIDERS: Emergency Provider Family Medicine; PCP Family Medicine
DX: I63.9 Cerebral infarction, unspecified (principal); E03.9 Hypothyroidism, unspecified; Z79.899 Other long term (current) drug therapy
CPT/HCPCS: 36416; 51702; 70450; 71045; 80053; 80306; 81003; 82962; 85025; 85610; 85730; 93005; 96365; 96367; 96375; 99291; J2405; J2765; J2997